=== PATIENT | female | born 1985 | race Caucasian/White ===

== ENCOUNTER 2018-05-21 12:39 | Outpatient (CLI) | payer BC | END 2018-05-21 13:50 | disposition home or self-care (01) | LOC: OBT 12:39 → L-D 12:39 → OBT 13:50 | DX: O36.8130 Decreased fetal movements, third trimester, not applicable or unspecified (principal); O24.419 Gestational diabetes mellitus in pregnancy, unspecified control; Z3A.36 36 weeks gestation of pregnancy | CPT/HCPCS: 76818; 82962 ==

== ENCOUNTER 2018-05-23 16:58 | Outpatient (CLI) | payer BC | END 2018-05-23 19:50 | disposition home or self-care (01) | LOC: OBT 16:58 → L-D 16:59 → OBT 19:50 | DX: O36.8130 Decreased fetal movements, third trimester, not applicable or unspecified (principal); Z3A.36 36 weeks gestation of pregnancy | CPT/HCPCS: 76818 ==

== ENCOUNTER 2018-05-26 17:26 | Outpatient (CLI) | payer BC | END 2018-05-26 18:51 | disposition home or self-care (01) | LOC: OBT 17:26 → L-D 17:27 → OBT 18:51 | DX: O36.8330 Maternal care for abnormalities of the fetal heart rate or rhythm, third trimester, not applicable or unspecified (principal); O24.419 Gestational diabetes mellitus in pregnancy, unspecified control; Z3A.37 37 weeks gestation of pregnancy | CPT/HCPCS: 76818 ==

== ENCOUNTER 2018-05-28 14:34 | Outpatient (CLI) | payer BC | END 2018-05-28 16:00 | disposition home or self-care (01) | LOC: OBT 14:34 → L-D 14:34 → OBT 16:00 | DX: O24.419 Gestational diabetes mellitus in pregnancy, unspecified control (principal); O36.8330 Maternal care for abnormalities of the fetal heart rate or rhythm, third trimester, not applicable or unspecified; Z3A.37 37 weeks gestation of pregnancy | CPT/HCPCS: 76818 ==

== ENCOUNTER 2018-06-05 14:40 | Outpatient (CLI) | payer BC | END 2018-06-05 16:48 | disposition home or self-care (01) | LOC: OBT 14:40 → L-D 14:40 → OBT 16:48 | DX: O24.410 Gestational diabetes mellitus in pregnancy, diet controlled (principal); O34.219 Maternal care for unspecified type scar from previous cesarean delivery; Z3A.38 38 weeks gestation of pregnancy | CPT/HCPCS: 76818 ==

== ENCOUNTER 2018-06-08 00:45 | Inpatient (IN) | payer BC ==
[2018-06-08] MEDS ORDERED: MISOPROSTOL 200 MCG TAB PR ×2 (02:30→13:00)
[2018-06-08] MEDS ORDERED: CARBOPROST 250 MCG INJ IM (02:30)
[2018-06-08] MEDS ORDERED: OXYTOCIN 30 UNITS/LR 500 ML IV ×3 (02:30→13:00)
[2018-06-08] MEDS: LACTATED RINGER'S 1,000 ML IV ×4 (02:40→19:32)
[2018-06-08 02:53] LABS: ADD MAN DIFF? NO
[2018-06-08 02:54] LABS: WHITE BLOOD COUNT 10.3 10^3/ul (4.8-10.8)
[2018-06-08 02:54] LABS: BASOPHILS % 0.4 % (0.0-2.0); EOSINOPHILS # 0.1 10^3/ul (0.0-0.5); EOSINOPHILS % 0.7 % (0.0-7.0); HEMATOCRIT 37.3 % (37.0-47.0); HEMOGLOBIN 12.8 g/dl (12.0-16.0); LYMPHOCYTES # 2.3 10^3/ul (0.8-2.9); LYMPHOCYTES % 22.1 % (15.0-51.0); MEAN CORPUSCULAR HEMOGLOBIN 30.4 pg (29.0-33.0); MEAN CORPUSCULAR HGB CONC 34.3 g/dl (32.0-37.0); MEAN CORPUSCULAR VOLUME 88.6 fl (82.0-101.0); MEAN PLATELET VOLUME 9.6 fl (7.4-10.4); MONOCYTE # 0.7 10^3/ul (0.3-0.9); MONOCYTES % 6.3 % (0.0-11.0); NEUTROPHIL # 7.2 10^3/ul (1.6-7.5); PLATELET COUNT 287 10^3/UL (140-415); RED BLOOD COUNT 4.21 10^6/ul (4.20-5.40); RED CELL DISTRIBUTION WIDTH 13.8 % (11.5-14.5)
[2018-06-08 03:15] LABS: INR 0.87; PROTIME 11.9 Sec (11.9-14.9); PT RATIO 0.9
[2018-06-08 03:16] LABS: GLUCOSE 80 mg/dl (70-220)
[2018-06-08 03:16] LABS: PARTIAL THROMBOPLASTIN TIME 24.2 Sec (25.0-35.0)
[2018-06-08 04:58] LABS: HEPATITIS B SURFACE ANTIGEN NEGATIVE (NEGATIVE)
[2018-06-08] MEDS ORDERED: OXYTOCIN 30 UNITS/LR 500 ML BAG IV (07:00)
[2018-06-08] MEDS ORDERED: OXYTOCIN 10 UNIT INJ (10:57)
[2018-06-08] MEDS ORDERED: morphine SULFATE/PF (10 MG/10 ML) INJ ×2 (10:57→13:09)
[2018-06-08] MEDS ORDERED: BUPIVACAINE 0.75%/DEXT (SPINAL) 2 ML INJ ×3 (10:57→13:09)
[2018-06-08] MEDS ORDERED: ONDANSETRON 4 MG INJ (10:57)
[2018-06-08] MEDS ORDERED: PHENYLephrine (100 MCG/ML) 5ML SYG ×3 (10:57→12:06)
[2018-06-08] MEDS ORDERED: FENTAnyl 50 MCG/ML VIAL (12:08)
[2018-06-08] MEDS ORDERED: KETOROLAC 30 MG INJ (12:58)
[2018-06-08] MEDS ORDERED: CEFAZOLIN 2 GM/50 ML (PMX) 50 ML IV (13:00)
[2018-06-08] MEDS ORDERED: METHYLERGONOVINE 0.2 MG INJ IM (13:00)
[2018-06-08] MEDS: CEFAZOLIN 2 GM/50 ML (PMX) 50 ML IV ×2 (13:14→20:14)
[2018-06-08] MEDS ORDERED: NALOXONE (0.4 MG/ML) INJ IV (13:30)
[2018-06-08] MEDS ORDERED: DIPHENHYDRAMINE 50 MG INJ IV (13:30)
[2018-06-08] MEDS ORDERED: ONDANSETRON 4 MG INJ IV (13:30)
[2018-06-08] MEDS: KETOROLAC 30 MG INJ IV (14:04)
[2018-06-08] MEDS: METHYLERGONOVINE 0.2 MG INJ IM (15:04)
[2018-06-08] MEDS: OXYTOCIN 30 UNITS/LR 500 ML IV ×3 (15:14→21:50)
[2018-06-08] MEDS: CARBOPROST 250 MCG INJ IM (16:01)
[2018-06-08 16:37] LABS: ADD MAN DIFF? NO
[2018-06-08 16:38] LABS: WHITE BLOOD COUNT 13.7 10^3/ul (4.8-10.8)
[2018-06-08 16:38] LABS: BASOPHIL # 0.1 10^3/ul (0.0-0.1); BASOPHILS % 0.4 % (0.0-2.0); EOSINOPHILS % 0.1 % (0.0-7.0); HEMATOCRIT 38.3 % (37.0-47.0); LYMPHOCYTES # 0.9 10^3/ul (0.8-2.9); LYMPHOCYTES % 6.9 % (15.0-51.0); MEAN CORPUSCULAR HEMOGLOBIN 30.3 pg (29.0-33.0); MEAN CORPUSCULAR HGB CONC 33.9 g/dl (32.0-37.0); MEAN CORPUSCULAR VOLUME 89.3 fl (82.0-101.0); MEAN PLATELET VOLUME 9.2 fl (7.4-10.4); MONOCYTE # 0.8 10^3/ul (0.3-0.9); NEUTROPHIL # 11.8 10^3/ul (1.6-7.5); NEUTROPHILS % 86.1 % (39.0-77.0); PLATELET COUNT 252 10^3/UL (140-415); RED BLOOD COUNT 4.29 10^6/ul (4.20-5.40); RED CELL DISTRIBUTION WIDTH 13.5 % (11.5-14.5)
[2018-06-08] MEDS: MISOPROSTOL 100 MCG TAB PO (16:49)
[2018-06-08 17:15] LABS: RAPID PLASMA REAGIN NONREACTIVE (NR)
[2018-06-08] MEDS: MISOPROSTOL 200 MCG TAB PO (17:43)
[2018-06-08] MEDS: IBUPROFEN 600 MG TAB PO (18:00)
[2018-06-09] MEDS: CEFAZOLIN 2 GM/50 ML (PMX) 50 ML IV ×2 (04:12→12:20)
[2018-06-09] MEDS: IBUPROFEN 600 MG TAB PO ×5 (06:00→23:28)
[2018-06-09] MEDS: morphine 2 MG INJ IV (06:50)
[2018-06-09] MEDS: METHYLERGONOVINE 0.2 MG INJ IM (07:47)
[2018-06-09 08:20] LABS: ADD MAN DIFF? NO
[2018-06-09 08:26] LABS: WHITE BLOOD COUNT 11.7 10^3/ul (4.8-10.8)
[2018-06-09 08:26] LABS: BASOPHILS % 0.3 % (0.0-2.0); EOSINOPHILS % 0.3 % (0.0-7.0); HEMATOCRIT 33.4 % (37.0-47.0); HEMOGLOBIN 11.3 g/dl (12.0-16.0); LYMPHOCYTES # 1.2 10^3/ul (0.8-2.9); LYMPHOCYTES % 9.8 % (15.0-51.0); MEAN CORPUSCULAR HEMOGLOBIN 30.5 pg (29.0-33.0); MEAN CORPUSCULAR HGB CONC 33.8 g/dl (32.0-37.0); MEAN CORPUSCULAR VOLUME 90.3 fl (82.0-101.0); MEAN PLATELET VOLUME 9.6 fl (7.4-10.4); MONOCYTE # 0.9 10^3/ul (0.3-0.9); MONOCYTES % 7.5 % (0.0-11.0); NEUTROPHIL # 9.6 10^3/ul (1.6-7.5); NEUTROPHILS % 81.4 % (39.0-77.0); PLATELET COUNT 265 10^3/UL (140-415); RED CELL DISTRIBUTION WIDTH 13.8 % (11.5-14.5)
[2018-06-09] MEDS: LACTATED RINGER'S 1,000 ML IV ×2 (09:12→20:13)
[2018-06-09] MEDS: KETOROLAC 30 MG INJ IV (11:18)
[2018-06-09] MEDS: LANOLIN 7 GM TUBE TOP (17:03)
[2018-06-10] MEDS: OXYCODONE/ACETAMINOPHEN (5/325) TAB PO ×4 (02:30→22:45)
[2018-06-10] MEDS: LACTATED RINGER'S 1,000 ML IV ×2 (05:06→17:34)
[2018-06-10] MEDS: IBUPROFEN 600 MG TAB PO ×4 (05:43→23:57)
[2018-06-11] MEDS: LACTATED RINGER'S 1,000 ML IV ×3 (03:34→19:15)
[2018-06-11] MEDS: IBUPROFEN 600 MG TAB PO ×4 (05:36→23:44)
[2018-06-11] MEDS: OXYCODONE/ACETAMINOPHEN (5/325) TAB PO ×2 (14:54→21:26)
[2018-06-11] MEDS: LANOLIN 7 GM TUBE TOP (21:26)
[2018-06-12] MEDS: OXYCODONE/ACETAMINOPHEN (5/325) TAB PO ×2 (03:26→20:09)
[2018-06-12] MEDS: IBUPROFEN 600 MG TAB PO ×3 (05:31→17:30)
[2018-06-12] MEDS: LACTATED RINGER'S 1,000 ML IV ×2 (09:34→19:34)
[2018-06-13] MEDS: IBUPROFEN 600 MG TAB PO ×3 (00:18→11:29)
[2018-06-13] MEDS: LACTATED RINGER'S 1,000 ML IV ×2 (05:34→15:34)
[2018-06-13] MEDS: OXYCODONE/ACETAMINOPHEN (5/325) TAB PO ×3 (06:00→15:32)
[2018-06-13] MEDS: LANOLIN 7 GM TUBE TOP (15:32)
== END 2018-06-13 16:30 | disposition home or self-care (01) | DRG 766 ==
LOC: OBT 00:45 → L-D 00:45 → OBT 02:05 → L-D 02:05 → PP1 15:39
PROVIDERS: Obstetrics & Gynecology
PROC: 10D00Z1 Extraction of Products of Conception, Low, Open Approach (ICD-10-PCS; principal; 2018-06-08 10:00)
PROC: 0UL70ZZ Occlusion of Bilateral Fallopian Tubes, Open Approach (ICD-10-PCS; 2018-06-08 10:00)
DX: O34.211 Maternal care for low transverse scar from previous cesarean delivery (principal); O24.429 Gestational diabetes mellitus in childbirth, unspecified control; G97.1 Other reaction to spinal and lumbar puncture; Z30.2 Encounter for sterilization; Z3A.39 39 weeks gestation of pregnancy; Z37.0 Single live birth
CPT/HCPCS: 36415; 82947; 82962; 85025; 85610; 85730; 86592; 86850; 86900; 86901; 87340; 88302

== ENCOUNTER 2018-06-15 20:48 | Emergency (ER) | payer BC ==
[2018-06-15 23:38] LABS: ADD MAN DIFF? NO
[2018-06-15 23:42] LABS: BASOPHILS % 0.4 % (0.0-2.0); EOSINOPHILS # 0.1 10^3/ul (0.0-0.5); EOSINOPHILS % 0.6 % (0.0-7.0); HEMATOCRIT 35.7 % (37.0-47.0); HEMOGLOBIN 11.9 g/dl (12.0-16.0); LYMPHOCYTES # 2.1 10^3/ul (0.8-2.9); LYMPHOCYTES % 21.4 % (15.0-51.0); MEAN CORPUSCULAR HEMOGLOBIN 29.9 pg (29.0-33.0); MEAN CORPUSCULAR HGB CONC 33.3 g/dl (32.0-37.0); MEAN CORPUSCULAR VOLUME 89.7 fl (82.0-101.0); MEAN PLATELET VOLUME 8.5 fl (7.4-10.4); MONOCYTE # 0.8 10^3/ul (0.3-0.9); MONOCYTES % 7.8 % (0.0-11.0); NEUTROPHIL # 6.6 10^3/ul (1.6-7.5); NEUTROPHILS % 69.2 % (39.0-77.0); PLATELET COUNT 471 10^3/UL (140-415); RED BLOOD COUNT 3.98 10^6/ul (4.20-5.40); RED CELL DISTRIBUTION WIDTH 13.5 % (11.5-14.5)
[2018-06-15 23:42] LABS: WHITE BLOOD COUNT 9.6 10^3/ul (4.8-10.8)
[2018-06-16 00:06] LABS: ADD UMIC YES; UR ASCORBIC ACID NEGATIVE (NEGATIVE); UR BILIRUBIN (Dip) NEGATIVE (NEGATIVE); UR BLOOD (Dip) 2+ mg/dL (NEGATIVE); UR CLARITY CLEAR (CLEAR); UR COLOR YELLOW (YELLOW); UR GLUCOSE (Dip) NEGATIVE (NEGATIVE); UR KETONES (Dip) TRACE mg/dL (NEGATIVE); UR LEUKOCYTE ESTERASE (Dip) NEGATIVE Leu/ul (NEGATIVE); UR MUCUS FEW /HPF (NONE SEEN); UR NITRITE (Dip) NEGATIVE (NEGATIVE); UR RBC 0 /HPF (0-5); UR SPECIFIC GRAVITY (Dip) 1.021 (1.003-1.030); UR SQUAMOUS EPITHELIAL CELL FEW /HPF (FEW); UR TOTAL PROTEIN (Dip) NEGATIVE (NEGATIVE); UR UROBILINOGEN (Dip) NEGATIVE (NEGATIVE); UR WBC 6 /HPF (0-5)
[2018-06-16] MEDS: IBUPROFEN 600 MG TAB PO (00:07)
[2018-06-16 00:27] LABS: ALANINE AMINOTRANSFERASE 19 IU/L (13-69); ALBUMIN 3.7 g/dl (3.3-4.9); ALBUMIN/GLOBULIN RATIO 1.15; ALKALINE PHOSPHATASE 77 IU/L (42-121); ANION GAP 13 (8-16); ASPARTATE AMINO TRANSFERASE 16 IU/L (15-46); BILIRUBIN,INDIRECT 0.3 mg/dl (0-1.1); BILIRUBIN,TOTAL 0.3 mg/dl (0.2-1.3); BLOOD UREA NITROGEN 8 mg/dl (7-20); CALCIUM 8.8 mg/dl (8.4-10.2); CARBON DIOXIDE 21 mmol/L (21-31); CHLORIDE 108 mmol/L (97-110); CREATININE 0.53 mg/dl (0.44-1.00); GLUCOSE 113 mg/dl (70-220); LIPASE 38 U/L (23-300); POTASSIUM 3.9 mmol/L (3.5-5.1); SODIUM 138 mmol/L (135-144); TOTAL PROTEIN 6.9 g/dl (6.1-8.1)
== END 2018-06-16 03:02 | disposition home or self-care (01) ==
LOC: FTE 20:48
DX: N30.01 Acute cystitis with hematuria (principal)
CPT/HCPCS: 36415; 76856; 80053; 81001; 83690; 85025; 99284-25